=== PATIENT | female | born 1980 | race Caucasian/White ===

== ENCOUNTER → 2016-06-08 | Outpatient (CLI) | payer OTHER ==
[2016-06-08 16:27] LABS: BASOPHILS % (AUTO) 1 % (0-2); EOSINOPHILS # (AUTO) 0.8 10^3uL; EOSINOPHILS % (AUTO) 8 % (0-4); MEAN CORPUSCULAR HEMOGLOBIN 30.5 PG (26.0-34.0); MEAN CORPUSCULAR HGB CONC 34.7 g/dL (31.0-37.0); MEAN CORPUSCULAR VOLUME 88 FL (80-100); MEAN PLATELET VOLUME 11.3 FL (6.0-9.5); MONOCYTES # (AUTO) 0.7 X10^3; MONOCYTES % (AUTO) 7 % (3-11); NEUTROPHILS # (AUTO) 4.2 X10^3; NEUTROPHILS % (AUTO) 43 % (51-67); PLATELET COUNT 312 10^3uL (150-450); WHITE BLOOD COUNT 9.82 10^3uL (4.0-11.0)
[2016-06-08 16:52] LABS: ALBUMIN 4.2 g/dL (3.4-5.0); ANION GAP 16.1 MEQ/L (3-15); CALCULATED IONIZED CALCIUM 4.1 mg/dL (3.8-4.6); TOTAL PROTEIN 7.6 g/dL (6.4-8.5)
[2016-06-09 15:30] LABS: Factor V Leiden Mutation Negative (Negative)
[2016-06-10 14:11] LABS: CARDIOLIPIN IGG ANTIBODY <4.0 GPL; CARDIOLIPIN IGM ANTIBODY <4.0 MPL (())
[2016-06-10 15:05] LABS: BETA-2 GLYCOPROTEIN IGM AB <4.0 U/mL
[2016-06-10 15:12] LABS: BETA-2 GLYCOPROTEIN IGG AB <4.0 U/mL
== END ==
LOC: LAB 16:07
PROVIDERS: ATTEND Internal Medicine Hematology & Oncology
DX: I81 Portal vein thrombosis (principal)
CPT/HCPCS: 36415; 80053; 81241; 81270; 81403; 85025; 85610; 85613; 85730; 86146; 86147; 88184; 88185

== ENCOUNTER → 2016-06-09 | Outpatient (CLI) | payer OTHER | LOC: RAD 08:21 | PROVIDERS: ATTEND Internal Medicine Hematology & Oncology | DX: I81 Portal vein thrombosis (principal) | CPT/HCPCS: 74170; Q9967 ==